=== PATIENT | female | born 1955 | race Caucasian/White ===

== ENCOUNTER 2021-07-16 16:00 | Outpatient (RCR) | payer OTHER, SELFPAY | END 2021-08-26 15:07 | disposition home or self-care (01) | LOC: HO.PT 16:00 | PROVIDERS: Visit Provider Nurse Practitioner Women's Health | DX: M25.561 Pain in right knee (principal); M94.262 Chondromalacia, left knee | CPT/HCPCS: 97110; 97162; 97530 ==

== ENCOUNTER 2022-06-19 15:07 | Outpatient (REF) | payer OTHER, SELFPAY | END 2022-06-19 15:08 | disposition home or self-care (01) | LOC: HO.LAB 15:07 | PROVIDERS: PCP Physician Assistant; Visit Provider Physician Assistant Medical | DX: L30.9 Dermatitis, unspecified (principal) | CPT/HCPCS: 36415; 86611 ==

== ENCOUNTER 2022-06-30 16:05 | Outpatient (REF) | payer OTHER, SELFPAY ==
[2022-07-02 06:36] LABS: Lyme Blot >10.00 index
[2022-07-03 09:59] LABS: 18 KD (IgG) Band REACTIVE; 23 KD (IgG) Band REACTIVE; 23 KD (IgM) Band REACTIVE; 28 KD (IgG) Band NON-REACTIVE; 30 KD (IgG) Band NON-REACTIVE; 39 KD (IgM) Band REACTIVE; 39KD (IgG) Band REACTIVE; 41 KD (IgM) Band REACTIVE; 41KD (IgG) Band REACTIVE; 45 KD (IgG) Band NON-REACTIVE; 58 KD (IgG) Band REACTIVE; 66 KD (IgG) Band NON-REACTIVE; 93 KD (IgG) Band NON-REACTIVE; Lyme IgG Blot Interp POSITIVE (NEGATIVE); Lyme IgM Blot Interp POSITIVE (NEGATIVE)
[2022-07-03 10:00] LABS: Lyme Abs Screen POSITIVE
== END 2022-06-30 16:06 | disposition home or self-care (01) ==
LOC: HO.LAB 16:05
PROVIDERS: PCP Internal Medicine; Visit Provider Physician Assistant Medical
DX: L30.9 Dermatitis, unspecified (principal)
CPT/HCPCS: 36415; 86617; 86618